=== PATIENT | male | born 1965 | race Asian ===

== ENCOUNTER → 2016-11-25 | Outpatient (CLI) | payer OTHER ==
[~2016-11-25] MED LIST: FLUT1SPR9
[2016-11-25 09:35] LABS: ANION GAP 5 MEQ/L (5-15); AST (GOT) 24 U/L (15-37); BICARBONATE 27.7 MEQ/L (21.0-32.0); BLOOD UREA NITROGEN 19 MG/DL (7-18); CHLORIDE 105 MEQ/L (98-107); GLOMERULAR FILTRATION RATE 90 ML/MIN (>89); GLUCOSE,FASTING 87 MG/DL (74-99); POTASSIUM 4.4 MEQ/L (3.5-5.1); SODIUM (NA) 138 MEQ/L (136-145)
[2016-11-25 09:37] LABS: ALT (GPT) 52 U/L (12-78)
[2016-11-25 09:39] LABS: ALKALINE PHOSPHATASE 67 U/L (45-117)
== END ==
LOC: PLAB 07:31
PROVIDERS: ATTEND Family Medicine
DX: E80.4 Gilbert syndrome (principal)
CPT/HCPCS: 80053

== ENCOUNTER → 2017-03-10 | Outpatient (CLI) | payer OTHER ==
[~2017-03-10] VITALS: Ht 172.7 cm; Wt 77.1 kg
[~2017-03-10] MED LIST changes: +CETI-1; +CHLORHEXIDINE GLUCONATE 2 % 1 PACK (2 CLOTHS) TOPICAL PRN; +FLUT1SPR5 EACH NARE; -FLUT1SPR9; +LACTATED RINGER'S 1000 ML IV PRN; +LIDOCAINE HCL 1% PF 5 ML SYRINGE OTHER ONE; +METOPROLOL TARTRATE 25 MG TAB PO PRN; +POVIDONE IODINE 5% (ANTISEPSIS KIT) 4 APPLICATIONS EACH NARE PRN; +PROPOFOL 200 MG/20 ML AMP IV ONE; +SODIUM CHLORID 0.9% 500 ML IV PRN
--- NOTE | 2017-03-10 11:06 | GIPROC ---
[facility] [address] [facility]. [facility], [address] COLONOSCOPY PROCEDURE REPORT EXAM DATE: 03/10/2017 PATIENT NAME: Willian Prieto MR #: [id number] BIRTHDATE: 1965 ENDOSCOPIST: Moises Causey MD ORDER #: [id number] SUPERVISOR POST WAVE: Tova Gaytan and Tavia Mccormick STATUS: outpatient INDICATIONS: The patient is a 52 yr old male here for a colonoscopy due to high risk patient with personal history of colonic polyps PROCEDURE PERFORMED: Colonoscopy with biopsy MEDICATIONS: None and Per Anesthesia. PREP QUALITY: marginal PREP TYPE:GoLytely ESTIMATED BLOOD LOSS: None CONSENT: The patient understands the risks and benefits of the procedure and understands that these risks include, but are not limited to: sedation, allergic reaction, infection, perforation and/or bleeding. Alternative means of evaluation and treatment include, among others: physical exam, x-rays, and/or surgical intervention. The patient elects to proceed with this endoscopic procedure. medical equipment was checked for proper function. Hand hygiene and appropriate measures for infection prevention was taken. After the risks, benefits and alternatives of the procedure were thoroughly explained, Informed consent was verified, confirmed and timeout was successfully executed by the treatment team. A digital exam was performed and revealed no abnormalities of the rectum The Pentax EC-[id number] endoscope was introduced through the anus and advanced to the terminal ileum which was intubated for a short distance. The instrument was then slowly withdrawn as the colon was fully examined. COLON FINDINGS: Six smooth sessile polyps measuring 2 mm in size were found in the distal sigmoid colon. Multiple biopsies were performed using cold forceps. Two smooth sessile polyps measuring 1 mm in size were found in the rectum. Multiple biopsies were performed using cold forceps. Mild diverticulosis was noted in the ascending colon, transverse colon, descending colon, and sigmoid colon. Small internal hemorrhoids were found. Retroflexion was performed and was normal The scope was then completely withdrawn from the patient and the procedure terminated. PROCEDURE WITHDRAWAL TIME:22minutes ADVERSE EVENTS: There were no complications. IMPRESSIONS: 1. Six sessile polyps were found in the distal sigmoid colon; multiple biopsies were performed using cold forceps 2. Two sessile polyps were found in the rectum; multiple biopsies were performed using cold forceps 3. Mild diverticulosis was noted in the ascending colon, transverse colon, descending colon, and sigmoid colon 4. Small internal hemorrhoids 5. Retroflexion was performed and was normal 6. Was performed 7. Revealed no abnormalities of the rectum RECOMMENDATIONS: 1. Await biopsy results. Biopsy results will not be ready for 7-10 days. If you don't hear from us in two weeks, call our office for results. 2. Follow-up: [facility] 1 month(s) RECALL: Return 2 years Colonoscopy Moises Causey MD eSigned: Moises Causey MD 03/10/2017 11:05 AM cc: PATIENT NAME: Willian Prieto MR#: [id number]
[2017-03-10 11:55] VITALS: BP 108/72; PULSE 18; RESP 18; TEMP 98.1; O2SAT 100
--- NOTE | 2017-03-10 16:28 | EKG ---
Date Performed: 03/10/2017 Time Performed: 08:24:26 PTAGE: 52 years EKG: Sinus rhythm . Normal ECG PREVIOUS TRACING : 02/06/2015 09.09 Since previous tracing, no significant change noted DOCTOR: Ang Washington Interpretating Date/Time 03/10/2017 16:27:36
== END ==
LOC: HSDC 07:59
PROVIDERS: ATTEND Internal Medicine Gastroenterology
DX: Z12.11 Encounter for screening for malignant neoplasm of colon (principal); Z86.010 Personal history of colon polyps; K63.5 Polyp of colon; K62.1 Rectal polyp; K64.8 Other hemorrhoids; K57.30 Diverticulosis of large intestine without perforation or abscess without bleeding; Z01.810 Encounter for preprocedural cardiovascular examination
CPT/HCPCS: 88305; 93005